=== PATIENT | female | born 1970 | race African-American/Black ===

== ENCOUNTER 2016-08-23 15:23 | Inpatient (IN) | payer MEDICARE, OTHER ==
--- NOTE | ~2016-08-23 | DS ---
Discharge Summary [facility] [address] [place]. [address] NAME: JACKIE PURI : 66 STATUS : DIS IN PAT#: [id number] AGE: 45 ADM/REG DATE : 08/23/16 MR#: [id number] REPORT SERV DATE: 09/10/16 DICTATED BY: URIEL PRYOR DATE: 09/09/16 REPORT STATUS : Draft TRANSCRIBED BY: BI DATE: 09/09/16 Data Collection from hospitalization DISCHARGE DIAGNOSES: 1. End-stage renal disease. 2. Noncompliance. 3. Nausea, vomiting, and diarrhea-resolved. 4. Diabetes mellitus. 5. Hypertension. 6. Abdominal pain-resolved. 7. Anemia of chronic renal failure. 8. Hyperlipidemia. 9. Coronary artery disease. CONSULTATIONS: 1. ANAIS Martin. 2. Marsha Mckinley DNP, [facility] PROCEDURES: 1. CT scan of the abdomen and pelvis without contrast, 08/23/2016. 2. Gallbladder ultrasound, 08/24/2016. 3. CT scan of the brain without contrast, 08/25/2016. 4. Mesenteric color flow study, 08/26/2016. 5. Thyroid ultrasound, 08/26/2016. 6. MRI of the brain without contrast, MRAG of the head without contrast, and MRAG of the neck without contrast, 08/27/2016. 7. Access port removal, 08/29/2016. DISCHARGE MEDICATIONS: 1. Norvasc 10 mg daily. 2. Aspirin 81 mg daily. 3. Lipitor 80 mg daily. 4. Coreg 6.25 mg twice a day. 5. Sensipar 30 mg daily. 6. Plavix 75 mg daily. 7. Lexapro 20 mg daily. 8. Imdur 60 mg daily. 9. Demadex 50 mg daily. CONDITION AT DISCHARGE: Stable. DISPOSITION: The patient was discharged home on a renal diet with activities as instructed. She would follow up at the Dialysis Clinic on [facility] on Mondays, Wednesdays, and Fridays as instructed. HOSPITAL COURSE: This is a 45-year-old female who dialyzes on Mondays, Wednesdays, and Fridays. She last attended dialysis however on Thursday prior to this admission. She said that she missed dialysis on the day prior to this admission due to the lack of gas funding. Discharge Summary [place] [address] [facility] [place]. [address] NAME: JACKIE PURI : 66 STATUS : DIS IN PAT#: [id number] AGE: 45 ADM/REG DATE : 08/23/16 MR#: [id number] REPORT SERV DATE: 09/10/16 DICTATED BY: URIEL PRYOR DATE: 09/09/16 REPORT STATUS : Draft TRANSCRIBED BY: BI DATE: 09/09/16 She awoke on the day of this admission with epigastric discomfort, nausea, and vomiting. She had vomited throughout most of the day. She denies any diarrhea. She also complained of facial swelling. She was admitted to the hospital at this time for further evaluation and treatment. Upon admission, liver function tests were within normal limits. Urinalysis was remarkable for white blood cells. Levaquin was going to began for possible urinary tract infection. Urine culture had been performed. We would obtain an ultrasound of the gallbladder. Blood pressure and diabetes medications would be resumed. DVT prophylaxis was started. A CT scan of the abdomen and pelvis without contrast was performed. The following day, a gallbladder ultrasound was obtained. She had ongoing epigastric pain. She still has some nausea and vomiting. Proton pump inhibitor and Phenergan were continued. IV fluids were continued. On 08/25/2016, a CT scan of the brain without contrast was performed. She had no edema. She had good pain control. Urine culture had revealed E. coli. The gallbladder ultrasound was normal. She still had abdominal pain, nausea, and vomiting. She was seen by Jerry Barron for evaluation and management of nausea, vomiting, epigastric abdominal pain, and hematemesis. Her gallbladder ultrasound had been completely normal. It was felt that she would need to undergo an EGD. She had never had a colonoscopy. She was presently on an antibiotic for E. coli urinary tract infection, Protonix drip was started, H2 inhibitor was going to be provided as well as Reglan. An EGD was going to be performed as well as a followup mesenteric ultrasound. A thyroid ultrasound was recommended. On 08/26/2016, she had no further nausea or vomiting. Mesenteric color flow study was performed as well as a thyroid ultrasound. She was seen by Marsha Mckinley regarding acute encephalopathy. She was scheduled to have an EGD performed; however, she became acutely encephalopathic of unknown cause. The nursing staff says she became lethargic and was "foaming at the mouth." When asked specifically in detail what foaming of the mouth means, they said she had a lot of oral secretions. There had been no evidence of seizure-like activity or pulmonary edema. CT scan of the brain showed no acute changes; however, there was evidence of possible increased intracranial pressure. Because of the lack of cerebral folding the patient said she had a headache since prior to this admission which is unusual for her. The etiology of the acute metabolic encephalopathy was unknown, but was most likely multifactorial in nature. MRI of the brain was requested with and without gadolinium and an MRA of the head and neck. EEG was also requested. If the MRI comes back negative for structural abnormalities high-volume lumbar puncture will be considered. On 08/27/2016, she was chronically ill appearing. She had some left upper quadrant soreness. She had no further hematemesis. Protonix drip was stopped. Reglan was discontinued. There were no plans to perform the EGD at the present time until the neurologic workup was performed. An MRI of the brain without contrast and MRAG of the head and neck without contrast was performed. No acute findings that were demonstrated in the brain parenchyma, very minimal chronic small vessel ischemic changes were seen in the periatrial white matter. There were bilateral distal ICA stenosis. MRA of the neck was negative. Acute metabolic encephalopathy seemed to be resolving, it was felt most likely related to urinary tract infection, medication, and end-stage renal disease. Her affect began to get brighter. She was refusing to have a scope performed. The next day, she had no nausea, vomiting, or abdominal pain. She did not want to proceed with endoscopy. Liver Discharge Summary [place] [address] [facility] [place]. [address] NAME: JACKIE PURI : 66 STATUS : DIS IN PAT#: [id number] AGE: 45 ADM/REG DATE : 08/23/16 MR#: [id number] REPORT SERV DATE: 09/10/16 DICTATED BY: URIEL PRYOR DATE: 09/09/16 REPORT STATUS : Draft TRANSCRIBED BY: BI DATE: 09/09/16 function tests were within normal limits. She was changed to oral proton pump inhibitor. She was changed to oral Pepcid. Discharge planning was performed. Neurologic status was stable at this time. An electroencephalogram had been performed, this was an abnormal EEG characterized by the presence of diffuse slowing of cerebral activity. No paroxysmal or epileptiform features were noted. No significant asymmetry of cerebral activity was present. This EEG may suggest the presence of diffuse cerebral dysfunction. On 08/29/2016, she underwent access port removal. Hemodialysis therapy had been performed. Antibiotics were stopped. Discharge instructions were given. Due to her improved and stable condition, she was discharged home with the above-stated instructions. Information collected by: Tamanna Fofana I submit the above information as my discharge summary. TG/MODL Uriel Pryor M.D. / [id number] CC: Pastor Cardona FNP
--- NOTE | ~2016-08-23 | CN ---
Consultation Report [facility] [address] [place]. [address] NAME: JACKIE PURI : 66 STATUS : ADM IN PAT#: [id number] AGE: 45 ADM/REG DATE : 08/23/16 MR#: [id number] REPORT SERV DATE: 08/25/16 DICTATED BY: SUNNI DUMONT DATE: 08/25/16 REPORT STATUS : Draft TRANSCRIBED BY: MODSangeetha DATE: 08/25/16 GI CONSULTATION DATE OF CONSULTATION: 08/25/2016 REASON FOR CONSULTATION: Evaluation and management of nausea, vomiting, epigastric abdominal pain, and hematemesis. HISTORY OF PRESENT ILLNESS: Ms. Puri is a 45-year-old female patient with a history of end-stage renal disease on dialysis since 09/2015, who presented to [facility] on 08/23/2016 with a chief complaint of nausea, vomiting, epigastric abdominal pain, and hematemesis x6 episodes. She states her symptoms began rather acutely on 08/23/2016. Epigastric pain persisted thus prompting her to come to [facility] for further evaluation. She had a noncontrasted CT scan which showed some peripancreatic inflammatory stranding questionably secondary to pancreatitis versus edema due to hypoproteinemia and gallbladder sludge. Her lipase was 75 with completely normal LFTs. Total bilirubin 0.8, alkaline phosphatase 75, ALT 16, AST 8. She underwent a gallbladder ultrasound, which was completely normal. She continues to complain of epigastric pain and inability to take in liquids. She was seen by us in 02/2016 for similar complaints. She had an EGD with Dr. Michaud showing reflux esophagitis, otherwise normal. She does have a history of diabetes unsure of how well her diabetes is controlled. She continues to complain of nausea. She states her last episode of vomiting up blood was early this morning secondary to those complaints. We will proceed with an EGD. Risks, benefits, alternatives, and complications were discussed with her to include, but not limited to risk of bleeding, perforation, infection, reaction to medications, as well as cardiac and pulmonary side effects. She states that her last bowel movement was on Thursday and that she was constipated, but no melena or hematochezia. She has never had a colonoscopy. She has been noted to have E coli urinary tract infection and is presently on antibiotic therapy for that. PAST MEDICAL HISTORY: Positive for end-stage renal disease, on dialysis, hypertension, hyperlipidemia, coronary artery disease, type 2 diabetes, history of non-ST elevation [place], anemia, and proteinuria. SOCIAL HISTORY: No alcohol or illicit drugs, but she does smoke tobacco daily. FAMILY HISTORY: Noncontributory from a GI standpoint. ALLERGIES: PENICILLIN. HOME MEDICATIONS: Consist of isosorbide, trazodone, Coreg, Protonix, aspirin, Norvasc, torsemide, divalproex, Lexapro, Sensipar, Lipitor, Lantus, and Humalog. REVIEW OF SYSTEMS: A 10-point review of systems has been obtained with pertinent positives being addressed in Consultation Report [address] [place]. [address] NAME: JACKIE PURI : 66 STATUS : ADM IN PAT#: [id number] AGE: 45 ADM/REG DATE : 08/23/16 MR#: [id number] REPORT SERV DATE: 08/25/16 DICTATED BY: SUNNI DUMONT DATE: 08/25/16 REPORT STATUS : Draft TRANSCRIBED BY: BI DATE: 08/25/16 the history of present illness. PHYSICAL EXAMINATION: VITAL SIGNS: Temperature 97.8, pulse 75, respirations 16, and blood pressure 141/67. GENERAL: Reveals an alert, but groggy female patient, resting in bed. She is cooperative. She is in mild distress secondary to nausea. HEAD, EARS, EYES, NOSE, AND THROAT: Anicteric. Pupils are equal, round, and reactive to light and accommodation. Normocephalic and atraumatic. NECK: No JVD. No palpable nodes. LUNGS: Diminished throughout with normal respiratory effort exhibited. CARDIOVASCULAR SYSTEM: Regular rate and rhythm. ABDOMEN: Obese, soft, but tender to palpation in the epigastric region and right and left upper quadrants, but no rebound or guarding elicited on exam. No peritoneal signs. Hypoactive bowel sounds. EXTREMITIES: No edema. Normal distal pulses. SKIN: Warm, dry, and intact. PERTINENT LABORATORY DATA: Sodium 146, potassium 5.2, BUN is 65, creatinine 6.21. White count 9.4, hemoglobin 9.6, hematocrit 31.4. Total bilirubin 0.6, alkaline phosphatase 75, ALT 16, AST 8. Lipase 75. ASSESSMENT AND PLAN: 1. Epigastric abdominal pain. 2. Nausea and vomiting with hematemesis. 3. Escherichia coli urinary tract infection. 4. Type 2 diabetes. 5. End-stage renal disease with dialysis dependence. PLAN: 1. We will begin a Protonix drip. 2. H2 inhibitor. 3. Reglan. 4. EGD in the morning. 5. Followup mesenteric ultrasound that has been ordered by Renal. Other recommendations to follow. STEVE/BI ANAIS Martin / [id number] Consultation Report [address] [place]. [address] NAME: JACKIE PURI : 66 STATUS : ADM IN PAT#: [id number] AGE: 45 ADM/REG DATE : 08/23/16 MR#: [id number] REPORT SERV DATE: 08/25/16 DICTATED BY: SUNNI DUMONT DATE: 08/25/16 REPORT STATUS : Draft TRANSCRIBED BY: BI DATE: 08/25/16 CC: Lc Wright M.D. UNKNOWN
--- NOTE | ~2016-08-23 | EEG ---
Electroencephalogram [place] [id number] [place]. [address] NAME: JACKIE PURI : 66 STATUS : DIS IN PAT#: [id number] AGE: 45 ADM/REG DATE : 08/23/16 MR#: [id number] REPORT SERV DATE: 08/29/16 DICTATED BY: SHIRLEY MELVIN DATE: 08/29/16 REPORT STATUS : Draft TRANSCRIBED BY: MODL DATE: 08/29/16 ELECTROENCEPHALOGRAPHY REPORT REQUESTING/ORDERING: Masrha Mckinley DNP, [facility]- INTERPRETING PHYSICIAN: Shirley Melvin M.D., Neurology EE. AGE: 45. REASON FOR EEG: Change in mental status and encephalopathy. 23 surface electrodes, 10-20 international placement was used. The patient was noted to be awake and drowsy throughout the study. Photic stimulation was performed. Video monitoring was utilized. The background activity consisted of moderate voltage, relatively well organized 7-8 cycles per second, located in the posterior head regions. This activity did not attenuate well with the eye opening maneuvers. No significant asymmetry of cerebral activity was present. No paroxysmal epileptiform activity was seen during the study. Photic stimulation did not produce changes or significant abnormality. The patient's environmental monitoring technician showed sinus rhythm, rate approximately 62 beats per minute. Moderate amount of muscle and movement artifact was present. IMPRESSION: ABNORMAL EEG CHARACTERIZED BY PRESENCE OF DIFFUSE SLOWING OF CEREBRAL ACTIVITY. NO PAROXYSMAL OR EPILEPTIFORM FEATURES WERE NOTED. NO SIGNIFICANT ASYMMETRY OF CEREBRAL ACTIVITY WAS PRESENT. THIS EEG MAY SUGGEST PRESENCE OF DIFFUSE CEREBRAL DYSFUNCTION. CLINICAL CORRELATION: RECOMMENDED. MONICA/BI Shirley Melvin MD / [id number] CC: Lc Wright M.D.
--- NOTE | ~2016-08-23 | CN ---
Consultation Report [facility] [address] [place]. [address] NAME: JACKIE PURI : 66 STATUS : ADM IN PAT#: [id number] AGE: 45 ADM/REG DATE : 08/23/16 MR#: [id number] REPORT SERV DATE: 08/26/16 DICTATED BY: MARSHA HUMPHRIES DATE: 08/26/16 REPORT STATUS : Draft TRANSCRIBED BY: MODSangeetha DATE: 08/26/16 NEUROLOGY CONSULTATION DATE OF CONSULTATION: 08/26/2016 REASON FOR CONSULTATION: Acute encephalopathy. HISTORY OF PRESENT ILLNESS: The patient is a 45-year-old female who has end-stage renal disease. She gets dialysis three times a week. She came to the hospital because she was having abdominal pain, nausea, and vomiting. She was seen by GI and was scheduled to have an EGD performed tomorrow. However, she has become acutely encephalopathic; cause unknown. In fact the nursing staff stated that she has become lethargic and has been "foaming at the mouth." When asked specifically in detail what "foaming at the mouth" meant, they stated that she has had a lot of oral secretions. There has been no evidence of seizure like activity or pulmonary edema. Consequently because of her decreased LOC, the patient was sent for a CT scan of the brain. There were no acute changes. However, there was evidence of possible increased intracranial pressure because of the lack of cerebral folding. The patient stated that she has had a headache since last which is somewhat unusual for her. PAST MEDICAL HISTORY: End-stage renal disease, diabetes mellitus, hypertension, coronary artery disease, anemia, hyperlipidemia, and tobacco abuse. PAST SURGICAL HISTORY: AV fistula placement, right IJ PermCath, and . HOME MEDICATION LIST: Includes isosorbide mononitrate b.i.d., trazodone at bedtime p.r.n., Coreg, Protonix, aspirin, Norvasc, torsemide b.i.d., Depakote 1 daily, Lexapro, Sensipar, and Lipitor. ALLERGIES: PENICILLIN. SOCIAL HISTORY: The patient is a . She has one child. She is disabled. She is a smoker. Does not drink alcohol or use illicits. FAMILY HISTORY: Apparently, the patient's mother has congestive heart failure and hypertension. Any other information is unobtainable at this time. REVIEW OF SYSTEMS: See HPI. PHYSICAL EXAMINATION: VITAL SIGNS: The patient is a 45-year-old female who stands 5 feet 3 inches tall and weighs 175 pounds. She is afebrile. Heart rate 79, respiratory rate 18, O2 saturation on 2 L 97%, Consultation Report [facility] [address] [facility] [place]. [address] NAME: JACKIE PURI : 66 STATUS : ADM IN PAT#: [id number] AGE: 45 ADM/REG DATE : 08/23/16 MR#: [id number] REPORT SERV DATE: 08/26/16 DICTATED BY: MARSHA HUMPHRIES DATE: 08/26/16 REPORT STATUS : Draft TRANSCRIBED BY: BI DATE: 08/26/16 blood pressure 171/73. NEURO: The patient is awake. She is alert. She can tell me her name. She knows she is at [facility] and knows it is the month of August. Otherwise, she is somewhat disoriented. She can follow a simple one-step command. Speech is fairly clear. She is slightly dysarthric. Cranial nerves are intact. There are no deficits. She can move all extremities x4. There is no ataxia with [id number]. No pronator drift. Strength is 4/5 in all extremities. No sensory deficits. DTRs are 1 to 2+ throughout. Downgoing toes. NECK: Carotid bruits bilaterally. The patient does have a slight grade 1/6 systolic murmur. LUNGS: Sounds relatively clear. LABORATORY DATA: CBC shows an H and H of 8.9 and 28.5. BMP shows BUN of 35 and creatinine 4.45. Urinalysis is positive for UTI. TSH is low at 0.3. CT of the brain, absence of sulci suggesting increased intracranial pressure. ASSESSMENT/PLAN: 1. Acute metabolic encephalopathy, etiology unknown, most likely multifactorial in nature. The patient has a urinary tract infection, end-stage renal disease. She is on medications with unknown dosages. Her CT scan did show possible increased intracranial pressure. She will undergo an MRI of the brain with and without gadolinium and an MRA of the head and neck. This will occur around noon tomorrow and she will be dialyzed directly afterwards. She will have an EEG in the morning. If her MRI comes back negative for any structural abnormalities, a high-volume LP will be considered. 2. End-stage renal disease, on dialysis. This is managed per Nephrology. 3. Urinary tract infection. Thank you again for including us in consultation. We will continue to follow with you. JAMILA/BI Marsha Humphries DNP, ACNP-BC / [id number] CC: Lc Wright M.D.
--- NOTE | ~2016-08-23 | HP ---
History And Physical [facility] [address] [facility] [place]. [address] NAME: JACKIE PURI : 66 STATUS : ADM IN [facility]#: [id number] AGE: 45 ADM/REG DATE : 08/23/16 MR#: [id number] REPORT SERV DATE: 08/24/16 DICTATED BY: TANISHA VALERA V. DATE: 08/23/16 REPORT STATUS : Draft TRANSCRIBED BY: BI DATE: 08/23/16 DATE OF ADMISSION: 08/23/2016 CHIEF COMPLAINT: Nausea and vomiting. HISTORY OF PRESENT ILLNESS: Ms. Puri is a 45-year-old Afro[place] female, who dialyzes Thursday, Thursday, Thursday at the [facility]. She last attended dialysis, however, on Thursday. She states she missed dialysis yesterday due to lack of gas funding. She woke earlier today with epigastric discomfort and nausea and vomiting. She has been vomiting throughout most of the day. She denies any diarrhea. She also complains of facial swelling. Previous abdominal surgeries only include a . PAST MEDICAL HISTORY: 1. ESRD. 2. Diabetes. 3. Hypertension. 4. Coronary artery disease without intervention. 5. Anemia of chronic renal failure. 6. Hyperlipidemia. PAST SURGICAL HISTORY: Includes right upper arm AV fistula, right IJ PermCath, and aforementioned C-sections. ALLERGIES: IT SHOULD ALSO BE NOTED THAT SHE IS ALLERGIC TO PENICILLIN. MEDICATIONS: Home medication list is being compiled. It appears she is on Norvasc, baby aspirin, Lipitor, torsemide, Coreg, Lantus insulin, isosorbide mononitrate, and Prilosec. FAMILY HISTORY: Denies any family history of ESRD. SOCIAL HISTORY: She is a smoker. Family with her presently. REVIEW OF SYSTEMS: Has had some issues with numbness in her right hand, which is the same side of hers as her access. Hence, she is still using her PermCath for most dialysis sessions. Remainder review of systems was negative except as described above. PHYSICAL EXAMINATION: VITAL SIGNS: Temperature was 98.9, heart rate 86, blood pressure 201/81. GENERAL: She is a somewhat edematous, middle-aged female with no increased work of breathing. HEENT: Pupils equal, round, reactive to light. Some periorbital edema was noted. No scleral icterus. Oropharynx revealed poor dentition with no lesions. NECK: Trachea midline. No thyromegaly. No supraclavicular nodes. No axillary lymph nodes were appreciated. CHEST: Decreased breath sounds in the bases bilaterally. History And Physical [id number] [place]. [address] NAME: JACKIE PURI : 66 STATUS : ADM IN [facility]#: [id number] AGE: 45 ADM/REG DATE : 08/23/16 MR#: [id number] REPORT SERV DATE: 08/24/16 DICTATED BY: TAINSHA VALERA V. DATE: 08/23/16 REPORT STATUS : Draft TRANSCRIBED BY: BI DATE: 08/23/16 CARDIOVASCULAR: Regular rate and rhythm. No rub. Right IJ PermCath in place without evidence of drainage or tenderness. ABDOMEN: Soft. No distention noted. No hepatosplenomegaly. Minimally tender to palpation in the epigastrium and a Posadas sign was reproduced. EXTREMITIES: Trace lower extremity edema. No clubbing. No cyanosis. SKIN: Warm and dry. No rash or lesions. MUSCULOSKELETAL: No joint tenderness or joint effusions. It was noted in knees or ankles bilaterally. Right upper arm AV fistula with thrill and bruit. No evidence of infection. EKG reviewed by me showed a normal sinus rhythm with LVH, but no acute T-wave changes. CT scan showed possible thickening of the gallbladder wall with mild peripancreatic stranding and fatty infiltration of the liver. She also has a small to moderate right pleural effusion. LABORATORY DATA: White count 9.4, hematocrit 32%, potassium 5.3. Lipase is normal. LFTs within normal limits. UA was remarkable for white blood cells. IMPRESSION: A 45-year-old female with end-stage renal disease with nausea and vomiting. Minor abnormality noted on CT scan that may lead to gallbladder as being the source of her discomfort. She has no significant transaminase abnormalities and her alkaline phosphatases is actually within normal limits. Gastroparesis would be another consideration given her long history of diabetes mellitus. Gastroenteritis perhaps viral type would be another consideration. She also has some degree of volume excess secondary to her missed dialysis session on 08/22/2016. On reviewing her old records, this appears to be a recurrent issue. PLAN: 1. Levaquin for possible urinary tract infection. Await urine culture. 2. Obtain ultrasound of the gallbladder. 3. Resume her blood pressure and diabetic medications. 4. Evaluate for hemodialysis if needed urgently on 08/24/2016. 5. Deep vein thrombosis prophylaxis. 6. The above was discussed with the patient and the patient's family at the patient's bedside. CP/MODL Tanisha Valera M.D. / [id number] CC: Lc Wright M.D.
[~2016-08-23 15:23] MED LIST: *UNABLE3; ACET500CAP PO; APRES25 PO; APRES50 PO; ASAB PO; BUM2 PO; COREG25 PO; COREG6 PO; COZAAR100 MG PO; FERROUS SULF325 M1 PO; FLU PO; FOLIC PO; HABIT21 TOP; HALF81 PO; HUMALOG SC; HYDRALAZINE100 MG PO; IMDUR60 PO; IRON325 MG PO; K-TABS10 MEQ PO; L80 PO; LANTUS SC; LIPITOR40 PO; LIPITOR80 MG PO; LOSARTAN PO; MIRALAXPKT PO; NORV10 PO; NYSTATIN; PRILOSEC40 MG PO; PRIN20 PO; PROAIR HFA INH; PROTONIX PO; PROVENTSOL INH; PROVHFA INH; SPIRO50 PO; T PO; TYLENOL COLD PO; TYLENOL PM PO; ZANTAC 150 PO; ZAROX2.5B PO; ZOL50 PO
[2016-08-23] MEDS ORDERED: IMDUR60 PO (16:17)
[2016-08-23] MEDS ORDERED: TRAZODONE PO (16:18)
[2016-08-23] MEDS ORDERED: COREG6 PO (16:18)
[2016-08-23] MEDS ORDERED: PROTONIX PO (16:19)
[2016-08-23] MEDS ORDERED: NORV10 PO (16:19)
[2016-08-23] MEDS ORDERED: ASAB PO (16:19)
[2016-08-23] MEDS ORDERED: DIVALPROEX PO (16:20)
[2016-08-23] MEDS ORDERED: TORSEMIDE PO (16:20)
[2016-08-23] MEDS ORDERED: LEXAPRO20 PO (16:20)
[2016-08-23] MEDS ORDERED: *UNABLE1 (16:21)
[2016-08-23] MEDS ORDERED: SENSIPAR30 MG PO (16:21)
[2016-08-23] MEDS ORDERED: LIPITOR80 MG PO (16:21)
[2016-08-23 16:32] LABS: BASOPHILS 0.2 %; BASOPHILS ABSOLUTE 0.02 10/3/uL (0.0-0.16); EOSINOPHILS 0 %; ER CBC TAT 0 Hrs 03 Mins; HEMATOCRIT 31.6 % (36.0-48.0); HEMOGLOBIN 9.7 g/dL (12.0-16.0); IMMATURE GRANULOCYTES 0.2 %; IMMATURE GRANULOCYTES ABSOLUTE 0.02 10/3/uL (0.0-0.11); LYMPHOCYTES ABSOLUTE 1.51 10/3/uL (0.67-4.30); MANUAL DIFF NO %; MEAN CORPUS HGB CONC 30.7 g/dL (32.0-36.0); MEAN CORPUSCULAR HEMOGLOB 28.2 pg (26.0-34.0); MEAN CORPUSCULAR VOLUME 91.9 fL (80-100); MEAN PLATELET VOLUME 10.1 fL (9.2-13.0); MONOCYTES 7.4 %; NEUTROPHILS 76.2 %; NEUTROPHILS ABSOLUTE 7.19 10/3/uL (2.02-8.40); PLATELET COUNT 266 10/3/uL (150-400); RBC DISTRIBUTION WIDTH 13.8 % (12.0-16.0); RED CELL COUNT 3.44 10/6/uL (4.0-5.6); WHITE BLOOD CELLS 9.4 10/3/uL (4.5-10.5)
[2016-08-23 16:44] LABS: ASCORBIC ACID (UR NOT ORDER) NEG (NEG); BILIRUBIN, URINE NEGATIVE (NEG); ER URINALYSIS TAT 0 Hrs 15 Mins; KETONE, URINE TRACE MG/DL (NEG); LEUKOCYTE ESTERASE(NOT OR MOD (NEG); NITRITE (URINE) NEG (NEG)
[2016-08-23 16:45] LABS: WBC (NOT ORDERED) (RFLEX) > 182 (0-5)
[2016-08-23 16:53] LABS: A/G RATIO 0.9 (0.7-1.9); ALBUMIN 3.3 G/DL (3.5-5.0); ALKALINE PHOSPHATASE 77 U/L (45-117); BUN (BLOOD UREA NITROGEN) 60 MG/DL (6-23); CHLORIDE, SERUM 113 MMOL/L (96-112); CO2 (CARBON DIOXIDE) 23 MMOL/L (24-34); CREATININE 5.85 MG/DL (0.55-1.02); GFR AFRICAN AMERICAN 9 ML/MIN (>=60); GFR NON AFRICAN AMERICAN 8 ML/MIN (>=60); GLOBULIN 3.7 G/DL (2.5-4.1); GLUCOSE, SERUM 158 MG/DL (60-99); POTASSIUM, SERUM 5.3 MMOL/L (3.5-5.3); SGPT(ALT) 15 U/L (5-65); SODIUM, SERUM 146 MMOL/L (135-148); TOTAL BILIRUBIN 0.8 MG/DL (0-1.2)
[2016-08-23 16:54] LABS: CALCIUM, SERUM 10.4 MG/DL (8.5-10.4); SGOT(AST) 15 U/L (5-40)
[2016-08-24 06:50] LABS: BASOPHILS 0.3 %; BASOPHILS ABSOLUTE 0.03 10/3/uL (0.0-0.16); EOSINOPHILS 0.1 %; EOSINOPHILS ABSOLUTE 0.01 10/3/uL (0.0-0.53); HEMATOCRIT 31.4 % (36.0-48.0); HEMOGLOBIN 9.6 g/dL (12.0-16.0); IMMATURE GRANULOCYTES 0.5 %; IMMATURE GRANULOCYTES ABSOLUTE 0.05 10/3/uL (0.0-0.11); LYMPHOCYTES 11.6 %; LYMPHOCYTES ABSOLUTE 1.09 10/3/uL (0.67-4.30); MANUAL DIFF NO %; MEAN CORPUS HGB CONC 30.6 g/dL (32.0-36.0); MEAN CORPUSCULAR HEMOGLOB 28.4 pg (26.0-34.0); MEAN CORPUSCULAR VOLUME 92.9 fL (80-100); MONOCYTES 6.5 %; MONOCYTES ABSOLUTE 0.61 10/3/uL (0.21-1.20); NEUTROPHILS ABSOLUTE 7.62 10/3/uL (2.02-8.40); PLATELET COUNT 256 10/3/uL (150-400); RBC DISTRIBUTION WIDTH 13.8 % (12.0-16.0); RED CELL COUNT 3.38 10/6/uL (4.0-5.6); WHITE BLOOD CELLS 9.4 10/3/uL (4.5-10.5)
[2016-08-24 07:04] LABS: A/G RATIO 0.8 (0.7-1.9); ALBUMIN 3.2 G/DL (3.5-5.0); ALKALINE PHOSPHATASE 75 U/L (45-117); BUN (BLOOD UREA NITROGEN) 65 MG/DL (6-23); CALCIUM, SERUM 10.1 MG/DL (8.5-10.4); CHLORIDE, SERUM 114 MMOL/L (96-112); CO2 (CARBON DIOXIDE) 22 MMOL/L (24-34); CREATININE 6.21 MG/DL (0.55-1.02); GAMMA GT 24 U/L (5-85); GFR AFRICAN AMERICAN 9 ML/MIN (>=60); GFR NON AFRICAN AMERICAN 7 ML/MIN (>=60); GLOBULIN 3.8 G/DL (2.5-4.1); GLUCOSE, SERUM 133 MG/DL (60-99); PHOSPHORUS, SERUM 7.1 MG/DL (2.5-4.5); POTASSIUM, SERUM 5.2 MMOL/L (3.5-5.3); SGOT(AST) 8 U/L (5-40); SGPT(ALT) 16 U/L (5-65); SODIUM, SERUM 146 MMOL/L (135-148); TOTAL BILIRUBIN 0.6 MG/DL (0-1.2)
[2016-08-25 16:48] LABS: BASOPHILS 0.1 %; BASOPHILS ABSOLUTE 0.01 10/3/uL (0.0-0.16); EOSINOPHILS 0.4 %; EOSINOPHILS ABSOLUTE 0.03 10/3/uL (0.0-0.53); HEMATOCRIT 28.8 % (36.0-48.0); HEMOGLOBIN 8.8 g/dL (12.0-16.0); IMMATURE GRANULOCYTES 0.4 %; IMMATURE GRANULOCYTES ABSOLUTE 0.03 10/3/uL (0.0-0.11); LYMPHOCYTES 15.1 %; LYMPHOCYTES ABSOLUTE 1.19 10/3/uL (0.67-4.30); MEAN CORPUS HGB CONC 30.6 g/dL (32.0-36.0); MEAN CORPUSCULAR HEMOGLOB 28.5 pg (26.0-34.0); MEAN CORPUSCULAR VOLUME 93.2 fL (80-100); MONOCYTES ABSOLUTE 0.55 10/3/uL (0.21-1.20); NEUTROPHILS ABSOLUTE 6.09 10/3/uL (2.02-8.40); PLATELET COUNT 231 10/3/uL (150-400); RBC DISTRIBUTION WIDTH 13.7 % (12.0-16.0); RED CELL COUNT 3.09 10/6/uL (4.0-5.6); WHITE BLOOD CELLS 7.9 10/3/uL (4.5-10.5)
[2016-08-25 16:49] LABS: MANUAL DIFF NO %
[2016-08-25 17:09] LABS: ALBUMIN 3.2 G/DL (3.5-5.0); BUN (BLOOD UREA NITROGEN) 77 MG/DL (6-23); CALCIUM, SERUM 9.3 MG/DL (8.5-10.4); CHLORIDE, SERUM 112 MMOL/L (96-112); CO2 (CARBON DIOXIDE) 25 MMOL/L (24-34); CREATININE 6.79 MG/DL (0.55-1.02); GFR AFRICAN AMERICAN 8 ML/MIN (>=60); GFR NON AFRICAN AMERICAN 7 ML/MIN (>=60); GLUCOSE, SERUM 96 MG/DL (60-99); PHOSPHORUS, SERUM 7.3 MG/DL (2.5-4.5); POTASSIUM, SERUM 4.7 MMOL/L (3.5-5.3); SODIUM, SERUM 144 MMOL/L (135-148)
[2016-08-26 07:06] LABS: BASOPHILS 0.1 %; BASOPHILS ABSOLUTE 0.01 10/3/uL (0.0-0.16); EOSINOPHILS 0.4 %; EOSINOPHILS ABSOLUTE 0.03 10/3/uL (0.0-0.53); HEMATOCRIT 28.5 % (36.0-48.0); HEMOGLOBIN 8.9 g/dL (12.0-16.0); IMMATURE GRANULOCYTES 0.3 %; IMMATURE GRANULOCYTES ABSOLUTE 0.02 10/3/uL (0.0-0.11); LYMPHOCYTES ABSOLUTE 0.85 10/3/uL (0.67-4.30); MEAN CORPUS HGB CONC 31.2 g/dL (32.0-36.0); MEAN CORPUSCULAR HEMOGLOB 28.7 pg (26.0-34.0); MEAN CORPUSCULAR VOLUME 91.9 fL (80-100); MEAN PLATELET VOLUME 9.9 fL (9.2-13.0); MONOCYTES 9.3 %; MONOCYTES ABSOLUTE 0.72 10/3/uL (0.21-1.20); NEUTROPHILS 78.9 %; NEUTROPHILS ABSOLUTE 6.12 10/3/uL (2.02-8.40); PLATELET COUNT 204 10/3/uL (150-400); RBC DISTRIBUTION WIDTH 13.2 % (12.0-16.0); WHITE BLOOD CELLS 7.8 10/3/uL (4.5-10.5)
[2016-08-26 07:07] LABS: MANUAL DIFF NO %
[2016-08-26 07:11] LABS: INTERNATIONAL NORMAL RATI 1.3 UNITS (-); PROTIME (NOT ORD) 15.9 SEC (12.0-14.5)
[2016-08-26 07:22] LABS: ALKALINE PHOSPHATASE 64 U/L (45-117); CALCIUM, SERUM 8.5 MG/DL (8.5-10.4); CHLORIDE, SERUM 107 MMOL/L (96-112); CO2 (CARBON DIOXIDE) 25 MMOL/L (24-34); INDIRECT BILIRUBIN(NOT ORDER) 0.7 MG/DL (0.1-0.9); POTASSIUM, SERUM 3.9 MMOL/L (3.5-5.3); SGOT(AST) 25 U/L (5-40); SGPT(ALT) 16 U/L (5-65); SODIUM, SERUM 143 MMOL/L (135-148); TOTAL PROTEIN 6.3 G/DL (6.0-8.5)
[2016-08-26 07:23] LABS: BUN (BLOOD UREA NITROGEN) 35 MG/DL (6-23); CREATININE 4.45 MG/DL (0.55-1.02); DIRECT BILIRUBIN 0.3 MG/DL (0.0-0.4); GFR AFRICAN AMERICAN 13 ML/MIN (>=60); GFR NON AFRICAN AMERICAN 11 ML/MIN (>=60); GLUCOSE, SERUM 70 MG/DL (60-99); PHOSPHORUS, SERUM 3.4 MG/DL (2.5-4.5)
[2016-08-26 14:01] LABS: PROCALCITONIN 0.05 ng/mL (<0.5)
[2016-08-26 14:18] LABS: FOLATE 6.1 NG/ML (>5.2)
[2016-08-27 13:45] LABS: BASOPHILS 0.3 %; BASOPHILS ABSOLUTE 0.02 10/3/uL (0.0-0.16); EOSINOPHILS ABSOLUTE 0.08 10/3/uL (0.0-0.53); IMMATURE GRANULOCYTES 0.1 %; IMMATURE GRANULOCYTES ABSOLUTE 0.01 10/3/uL (0.0-0.11); LYMPHOCYTES 19.2 %; LYMPHOCYTES ABSOLUTE 1.49 10/3/uL (0.67-4.30); MEAN CORPUSCULAR HEMOGLOB 27.9 pg (26.0-34.0); MEAN CORPUSCULAR VOLUME 89.8 fL (80-100); MEAN PLATELET VOLUME 9.8 fL (9.2-13.0); MONOCYTES 13.7 %; MONOCYTES ABSOLUTE 1.06 10/3/uL (0.21-1.20); NEUTROPHILS 65.7 %; NEUTROPHILS ABSOLUTE 5.09 10/3/uL (2.02-8.40); PLATELET COUNT 197 10/3/uL (150-400); RBC DISTRIBUTION WIDTH 13.5 % (12.0-16.0); RED CELL COUNT 3.23 10/6/uL (4.0-5.6); WHITE BLOOD CELLS 7.8 10/3/uL (4.5-10.5)
[2016-08-27 13:46] LABS: MANUAL DIFF NO %
[2016-08-27 13:57] LABS: BUN (BLOOD UREA NITROGEN) 39 MG/DL (6-23); CALCIUM, SERUM 8.9 MG/DL (8.5-10.4); CHLORIDE, SERUM 104 MMOL/L (96-112); CO2 (CARBON DIOXIDE) 29 MMOL/L (24-34); CREATININE 5.59 MG/DL (0.55-1.02); GFR AFRICAN AMERICAN 10 ML/MIN (>=60); GFR NON AFRICAN AMERICAN 8 ML/MIN (>=60); GLUCOSE, SERUM 119 MG/DL (60-99); PHOSPHORUS, SERUM 3.7 MG/DL (2.5-4.5); POTASSIUM, SERUM 3.8 MMOL/L (3.5-5.3); SODIUM, SERUM 140 MMOL/L (135-148)
[2016-08-28 05:54] LABS: BASOPHILS 0.2 %; BASOPHILS ABSOLUTE 0.01 10/3/uL (0.0-0.16); EOSINOPHILS 1.7 %; EOSINOPHILS ABSOLUTE 0.11 10/3/uL (0.0-0.53); HEMATOCRIT 29.5 % (36.0-48.0); HEMOGLOBIN 9.1 g/dL (12.0-16.0); IMMATURE GRANULOCYTES 0.2 %; IMMATURE GRANULOCYTES ABSOLUTE 0.01 10/3/uL (0.0-0.11); LYMPHOCYTES 15.1 %; LYMPHOCYTES ABSOLUTE 0.98 10/3/uL (0.67-4.30); MEAN CORPUS HGB CONC 30.8 g/dL (32.0-36.0); MEAN CORPUSCULAR HEMOGLOB 28.3 pg (26.0-34.0); MEAN CORPUSCULAR VOLUME 91.6 fL (80-100); MEAN PLATELET VOLUME 10.4 fL (9.2-13.0); MONOCYTES 15.3 %; MONOCYTES ABSOLUTE 0.99 10/3/uL (0.21-1.20); NEUTROPHILS 67.5 %; NEUTROPHILS ABSOLUTE 4.38 10/3/uL (2.02-8.40); PLATELET COUNT 199 10/3/uL (150-400); RBC DISTRIBUTION WIDTH 13.2 % (12.0-16.0); RED CELL COUNT 3.22 10/6/uL (4.0-5.6); WHITE BLOOD CELLS 6.5 10/3/uL (4.5-10.5)
[2016-08-28 05:56] LABS: INTERNATIONAL NORMAL RATI 1.2 UNITS (-); PROTIME (NOT ORD) 15.2 SEC (12.0-14.5)
[2016-08-28 06:03] LABS: MANUAL DIFF NO %
[2016-08-28 06:05] LABS: ALBUMIN 2.7 G/DL (3.5-5.0); ALKALINE PHOSPHATASE 57 U/L (45-117); CALCIUM, SERUM 8.3 MG/DL (8.5-10.4); CHLORIDE, SERUM 108 MMOL/L (96-112); CO2 (CARBON DIOXIDE) 27 MMOL/L (24-34); DIRECT BILIRUBIN 0.4 MG/DL (0.0-0.4); GLUCOSE, SERUM 102 MG/DL (60-99); INDIRECT BILIRUBIN(NOT ORDER) 0.8 MG/DL (0.1-0.9); POTASSIUM, SERUM 3.8 MMOL/L (3.5-5.3); SGOT(AST) 26 U/L (5-40); SGPT(ALT) 29 U/L (5-65); SODIUM, SERUM 144 MMOL/L (135-148); TOTAL BILIRUBIN 1.2 MG/DL (0-1.2); TOTAL PROTEIN 5.9 G/DL (6.0-8.5)
[2016-08-28 06:11] LABS: BUN (BLOOD UREA NITROGEN) 22 MG/DL (6-23); CREATININE 3.79 MG/DL (0.55-1.02); GFR AFRICAN AMERICAN 16 ML/MIN (>=60); GFR NON AFRICAN AMERICAN 13 ML/MIN (>=60); PHOSPHORUS, SERUM 2.7 MG/DL (2.5-4.5)
[2016-08-28 11:28] LABS: CK-MB 2.1 NG/ML; CPK 97 U/L (0-200); TROPONIN I 0.62 NG/ML (<0.05)
[2016-08-28 20:52] LABS: CPK 102 U/L (0-200)
[2016-08-28 20:56] LABS: CK-MB 1.6 NG/ML; TROPONIN I 0.47 NG/ML (<0.05)
[2016-08-29 05:45] LABS: CK-MB 1.5 NG/ML; CPK 100 U/L (0-200); TROPONIN I 0.33 NG/ML (<0.05)
[2016-08-29 08:35] LABS: BASOPHILS 0.1 %; BASOPHILS ABSOLUTE 0.01 10/3/uL (0.0-0.16); EOSINOPHILS ABSOLUTE 0.14 10/3/uL (0.0-0.53); HEMATOCRIT 28.9 % (36.0-48.0); HEMOGLOBIN 9.1 g/dL (12.0-16.0); IMMATURE GRANULOCYTES 0.1 %; IMMATURE GRANULOCYTES ABSOLUTE 0.01 10/3/uL (0.0-0.11); LYMPHOCYTES ABSOLUTE 1.24 10/3/uL (0.67-4.30); MANUAL DIFF NO %; MEAN CORPUS HGB CONC 31.5 g/dL (32.0-36.0); MEAN CORPUSCULAR HEMOGLOB 28.3 pg (26.0-34.0); MEAN PLATELET VOLUME 9.7 fL (9.2-13.0); MONOCYTES 12.9 %; MONOCYTES ABSOLUTE 0.89 10/3/uL (0.21-1.20); NEUTROPHILS 66.9 %; NEUTROPHILS ABSOLUTE 4.59 10/3/uL (2.02-8.40); PLATELET COUNT 207 10/3/uL (150-400); RBC DISTRIBUTION WIDTH 13.3 % (12.0-16.0); RED CELL COUNT 3.21 10/6/uL (4.0-5.6); WHITE BLOOD CELLS 6.9 10/3/uL (4.5-10.5)
[2016-08-29 08:44] LABS: ALBUMIN 2.8 G/DL (3.5-5.0); CALCIUM, SERUM 8.9 MG/DL (8.5-10.4); CHLORIDE, SERUM 105 MMOL/L (96-112); CO2 (CARBON DIOXIDE) 29 MMOL/L (24-34); GFR AFRICAN AMERICAN 11 ML/MIN (>=60); GFR NON AFRICAN AMERICAN 10 ML/MIN (>=60); GLUCOSE, SERUM 105 MG/DL (60-99); PHOSPHORUS, SERUM 3.3 MG/DL (2.5-4.5); POTASSIUM, SERUM 3.7 MMOL/L (3.5-5.3); SODIUM, SERUM 141 MMOL/L (135-148)
[2016-08-29 08:45] LABS: BUN (BLOOD UREA NITROGEN) 30 MG/DL (6-23); CREATININE 4.99 MG/DL (0.55-1.02)
[2016-08-29] MEDS ORDERED: PLAVIX PO (18:01)
[2016-08-29] MEDS ORDERED: DEMA10T PO (18:02)
== END 2016-08-29 19:05 | disposition home or self-care (01) | DRG 682 ==
LOC: ER 15:23 → 4SO 19:38
PROVIDERS: Internal Medicine Nephrology; Nurse Practitioner; Nurse Practitioner Family; Physician Assistant Medical; Registered Nurse
PROC: 5A1D60Z (ICD-10-PCS; 2016-08-25)
PROC: 02PY33Z Removal of Infusion Device from Great Vessel, Percutaneous Approach (ICD-10-PCS; principal; 2016-08-29)
DX: I12.0 Hypertensive chronic kidney disease with stage 5 chronic kidney disease or end stage renal disease (principal); N18.6 End stage renal disease; G93.41 Metabolic encephalopathy; K92.0 Hematemesis; E11.22 Type 2 diabetes mellitus with diabetic chronic kidney disease; E11.649 Type 2 diabetes mellitus with hypoglycemia without coma; N39.0 Urinary tract infection, site not specified; Z99.2 Dependence on renal dialysis; D63.1 Anemia in chronic kidney disease; K76.0 Fatty (change of) liver, not elsewhere classified; I25.10 Atherosclerotic heart disease of native coronary artery without angina pectoris; F17.210 Nicotine dependence, cigarettes, uncomplicated; E78.5 Hyperlipidemia, unspecified; Z79.4 Long term (current) use of insulin; Z79.899 Other long term (current) drug therapy; Z79.82 Long term (current) use of aspirin; Z91.15 Patient's noncompliance with renal dialysis; Z88.0 Allergy status to penicillin; B96.20 Unspecified Escherichia coli [E. coli] as the cause of diseases classified elsewhere; I25.2 Old myocardial infarction; I65.23 Occlusion and stenosis of bilateral carotid arteries
CPT/HCPCS: 36589; 70450; 70544; 70547; 70551; 71020; 74176; 76536; 76705; 77001; 80053; 80069; 80076; 81001; 82140; 82150; 82550; 82553; 82607; 82746; 82962; 82977; 83690; 83735; 84100; 84145; 84443; 84484; 84703; 85025; 85610; 87077; 87086; 87186; 93005; 93975; 95816; 96374; 96375; 99152; 99153; 99285; A9270-GY; C9113; G0257; J0360; J1170; J1956; J2250; J2405; J2550; J2765; J3010

== ENCOUNTER 2016-09-06 17:48 | Emergency (ER) | payer MEDICARE, OTHER ==
[~2016-09-06 17:48] MED LIST changes: +*UNABLE1; +DEMA10T PO; +DIVALPROEX PO; +LEXAPRO20 PO; +PLAVIX PO; +SENSIPAR30 MG PO; +TORSEMIDE PO; +TRAZODONE PO
[2016-09-06 19:06] LABS: ASCORBIC ACID (UR NOT ORDER) NEG (NEG); BILIRUBIN, URINE NEGATIVE (NEG); ER URINALYSIS TAT 0 Hrs 10 Mins; KETONE, URINE TRACE MG/DL (NEG); LEUKOCYTE ESTERASE(NOT OR NEG (NEG); NITRITE (URINE) NEG (NEG); WBC (NOT ORDERED) (RFLEX) 5 (0-5)
[2016-09-06 20:35] LABS: BASOPHILS 0.1 %; BASOPHILS ABSOLUTE 0.01 10/3/uL (0.0-0.16); EOSINOPHILS 0.2 %; EOSINOPHILS ABSOLUTE 0.02 10/3/uL (0.0-0.53); ER CBC TAT 0 Hrs 00 Mins; HEMATOCRIT 29.8 % (36.0-48.0); HEMOGLOBIN 9.4 g/dL (12.0-16.0); IMMATURE GRANULOCYTES 0.2 %; IMMATURE GRANULOCYTES ABSOLUTE 0.02 10/3/uL (0.0-0.11); LYMPHOCYTES 10.5 %; LYMPHOCYTES ABSOLUTE 1.02 10/3/uL (0.67-4.30); MANUAL DIFF NO %; MEAN CORPUS HGB CONC 31.5 g/dL (32.0-36.0); MEAN CORPUSCULAR HEMOGLOB 27.9 pg (26.0-34.0); MEAN CORPUSCULAR VOLUME 88.4 fL (80-100); MEAN PLATELET VOLUME 9.4 fL (9.2-13.0); MONOCYTES 7.5 %; MONOCYTES ABSOLUTE 0.73 10/3/uL (0.21-1.20); NEUTROPHILS 81.5 %; NEUTROPHILS ABSOLUTE 7.87 10/3/uL (2.02-8.40); PLATELET COUNT 336 10/3/uL (150-400); RBC DISTRIBUTION WIDTH 12.8 % (12.0-16.0); RED CELL COUNT 3.37 10/6/uL (4.0-5.6); WHITE BLOOD CELLS 9.7 10/3/uL (4.5-10.5)
[2016-09-06 20:51] LABS: A/G RATIO 0.7 (0.7-1.9); ALBUMIN 2.7 G/DL (3.5-5.0); CHLORIDE, SERUM 103 MMOL/L (96-112); CO2 (CARBON DIOXIDE) 29 MMOL/L (24-34); GLOBULIN 4.1 G/DL (2.5-4.1); GLUCOSE, SERUM 99 MG/DL (60-99); POTASSIUM, SERUM 3.5 MMOL/L (3.5-5.3); SGOT(AST) 11 U/L (5-40); SGPT(ALT) 10 U/L (5-65); SODIUM, SERUM 140 MMOL/L (135-148); TOTAL BILIRUBIN 0.8 MG/DL (0-1.2); TOTAL PROTEIN 6.8 G/DL (6.0-8.5)
[2016-09-06 20:52] LABS: ALKALINE PHOSPHATASE 75 U/L (45-117); BUN (BLOOD UREA NITROGEN) 21 MG/DL (6-23); CREATININE 4.12 MG/DL (0.55-1.02); GFR AFRICAN AMERICAN 14 ML/MIN (>=60); GFR NON AFRICAN AMERICAN 12 ML/MIN (>=60); LACTATE 0.8 MMOL/L (0.3-2.4)
== END 2016-09-06 23:33 | disposition home or self-care (01) ==
LOC: ER 17:48
PROVIDERS: Nurse Practitioner
DX: R11.2 Nausea with vomiting, unspecified (principal); R10.9 Unspecified abdominal pain; I10 Essential (primary) hypertension; F17.200 Nicotine dependence, unspecified, uncomplicated; E11.9 Type 2 diabetes mellitus without complications; Z88.0 Allergy status to penicillin; Z79.82 Long term (current) use of aspirin; Z79.899 Other long term (current) drug therapy
CPT/HCPCS: 74176; 80053; 81001; 83605; 83690; 84703; 85025; 87040; 96374; 96375; 99284; J2405